=== PATIENT | male | born 1955 | race Hispanic/Latino ===

== ENCOUNTER 2018-07-14 10:45 | Outpatient (CLI) | payer MEDICARE, MEDICAID ==
--- NOTE | 2018-07-14 13:20 | RAD ---
PA AND LATERAL VIEWS OF THE CHEST: HISTORY: Flu vaccine needed. FINDINGS: There are no previous exams for comparison. The heart size is normal. The lungs are expanded without lobar consolidation, pneumothoraces, or ple ural effusions. There are degenerative changes in the spine. IMPRESSION: No acute process. POS: [facility]
== END 2018-07-14 10:46 | disposition home or self-care (01) ==
LOC: BICRAD 10:45
PROVIDERS: ATTEND Family Medicine
DX: Z23 Encounter for immunization (principal)
CPT/HCPCS: 71046